=== PATIENT | male | born 1960 | race Caucasian/White ===

== ENCOUNTER 2020-02-14 03:09 | Emergency (ER) | payer OTHER ==
[~2020-02-14] VITALS: Ht 188 cm; Wt 90.0 kg
--- NOTE | 2020-02-14 03:56 | PHYS DOC ---
General Adult EDM: Chief Complaint: ALTERED MENTAL STATUS HPI: HPI: Patient is a 59 year old male brought in by EMS for evaluation of decreased level of consciousness. Prior to arrival found patient unresponsive sitting at the kitchen table. states patient look like he was . He states that he could not arouse the patient and he subsquently call 911. EMS states patient decreased level of consciousness- GCS of 5 but vital signs were stable and patient was maintaining his airway. During transport patient woke up and started talking. On arrival patient seems drowsy and slurring his words. Patient admits to drinking tonight but states not more than normal. Patient recalls the events of the evening up until passing out. He denies any history of chest pain or shortness of breath. Patient does recall a single episodes of dizzinesss this evening-- but he related it to possible intoxcation. Currently at bedside. Patient a/ox4. No focal weakness. Patient does have a pacemaker/defibulator and does not believe his device discharged. Review of Systems: Review of Systems: Constitutional: Denies fever or chills. [] Eyes: Denies change in visual acuity. [] HENT: Denies nasal congestion or sore throat. [] Respiratory: Denies cough or shortness of breath. [] Cardiovascular: Denies chest pain or edema. [] GI: Denies abdominal pain, nausea, vomiting, bloody stools or diarrhea. [] : Denies dysuria. [] Musculoskeletal: Denies back pain or joint pain. [] Integument: Denies rash. [] Neurologic: Denies headache, focal weakness or sensory changes. [] Endocrine: Denies polyuria or polydipsia. [] Lymphatic: Denies swollen glands. [] Psychiatric: Denies depression or anxiety. [] Heart Score: Risk Factors: Risk Factors: DM, Current or recent (<one month) smoker, HTN, HLP, family history of CAD, obesity. Risk Scores: Score 0 - 3: 2.5% MACE over next 6 weeks - Discharge Home Score 4 - 6: 20.3% MACE over next 6 weeks - Admit for Clinical Observation Score 7 - 10: 72.7% MACE over next 6 weeks - Early Invasive Strategies Physical Exam: PE: Constitutional: Well developed, well nourished, no acute distress, non-toxic a ppearance. [] HENT: Normocephalic, atraumatic, bilateral external ears normal, oropharynx moist, no oral exudates, nose normal. [] Eyes: PERRLA, EOMI, conjunctiva normal, no discharge. [] Neck: Normal range of motion, no tenderness, supple, no stridor. [] Cardiovascular:Heart rate regular rhythm, no murmur [] Lungs & Thorax: Bilateral breath sounds clear to auscultation [] Abdomen: Bowel sounds normal, soft, no tenderness, no masses, no pulsatile masses. [] Skin: Warm, dry, no erythema, no rash. [] Back: No tenderness, no CVA tenderness. [] Extremities: No tenderness, no cyanosis, no clubbing, ROM intact, no edema. [] Neurologic: Alert and oriented X 3, normal motor function, normal sensory function, no focal deficits noted. [] Psychologic: Affect normal, judgement normal, mood normal. [] EKG: EKG: EKG at 320 hours heart rate 80 artifact on EKG no ST elevation no ST depression no acute PR [] Radiology/Procedures: Radiology/Procedures: [] Course & Med Decision Making: Course & Med Decision Making Pertinent Labs and Imaging studies reviewed. (See chart for details) [] Patient was evaluated for chief complaint. Work-up consisted of laboratory analysis and radiologic imaging. Results reviewed and discussed with patient and significant other. Patient found to have an alcohol of greater than 200. Patient's magnesium was low and was replaced with 2 g. Patient's potassium patient was observed. Patient ambulated with a normal steady gait. Patient was discharged home in the care of significant other. Louis Disclaimer: Louis Disclaimer: This electronic medical record was generated, in whole or in part, using a voice recognition dictation system. Departure Departure Impression: Primary Impression: Altered mental status Additional Impressions: Alcohol intoxication Hypokalemia Hypomagnesemia Disposition: 01 DC HOME SELF CARE/HOMELESS Condition: STABLE Referrals: TERA CROCKETT (PCP) Patient Instructions: Alcohol Intoxication, Altered Mental Status, Hypokalemia, Hypomagnesemia JUSTINO RAWLS DO Feb 14, 2020 03:56
[2020-02-14 04:00] LABS: BARBITURATES NEG (NEG); BENZODIAZEPINES NEG (NEG); CANNABINOIDS NEG (NEG); COCAINE NEG (NEG); METHADONE NEG (NEG); OPIATES NEG (NEG); PHENCYCLIDINE NEG (NEG)
[2020-02-14 04:03] LABS: AMPHETAMINE/METHAMPHETAMINE NEG (NEG)
[2020-02-14 04:08] LABS: BASO % 0 % (0-3); EOS % 0 % (0-3); HEMATOCRIT 31.8 % (39.0-53.0); HEMOGLOBIN 11.4 g/dL (13.0-17.5); LYMPH # 1.2 x10^3/uL (1.0-4.8); LYMPH % 37 % (24-48); MEAN CORPUSCULAR HEMOGLOBIN 40 pg (25-35); MEAN CORPUSCULAR HGB CONC 36 g/dL (31-37); MEAN CORPUSCULAR VOLUME 112 fL (79-100); MONO # 0.2 x10^3/uL (0.0-1.1); MONO % 7 % (0-9); NEUT # 1.7 x10^3/uL (1.8-7.7); NEUT % 55 % (31-73); PLATELET COUNT 244 x10^3/uL (140-400); RED BLOOD COUNT 2.84 x10^6/uL (4.30-5.70); WHITE BLOOD COUNT 3.1 x10^3/uL (4.0-11.0)
[2020-02-14 04:20] LABS: ALBUMIN 3.5 g/dL (3.4-5.0); ALBUMIN/GLOBULIN RATIO 1.2 (1.0-1.7); CREATININE 1.1 mg/dL (0.7-1.3); GFR 68.8; TOTAL BILIRUBIN 0.6 mg/dL (0.2-1.0); TOTAL PROTEIN 6.4 g/dL (6.4-8.2)
[2020-02-14 04:23] LABS: POTASSIUM 2.3 mmol/L (3.5-5.1)
[2020-02-14] MEDS ORDERED: POTASSIUM CHLORIDE 20 MEQ TABLET.ER. PO ONE (04:45)
[2020-02-14] MEDS ORDERED: POTASSIUM CHLORIDE 10MEQ 100 ML IV ONE (05:00)
[2020-02-14] MEDS ORDERED: MAGNESIUM SULFATE 2GM 50 ML IV ONE (05:00)
[2020-02-14 05:02] LABS: PLT ESTIMATE ADEQUATE (ADEQUATE)
[2020-02-14] MEDS ORDERED: IV NORMAL SALINE 1000ML BAG 1,000 ML IV ONE (06:00)
[2020-02-15 03:10] VITALS: BP 126/79
--- NOTE | 2020-02-15 05:25 | EKG ---
[facility] [address] [place] [address] Test Date: 2020-02-14 Test Time: 03:20:04 Pat Name: NAEEM CROSS Department: Room: Gender: M Final Inspector Balance Wheel: : 1960 Requested By: JUSTINO RAWLS Order Number: [id number] Reading MD: Measurements Intervals [place] Rate: 80 P: MD: QRS: -19 QRSD: 132 T: 49 QT: 456 QTc: 530 Interpretive Statements IRREGULAR RHYTHM, NO P-WAVE FOUND VENTRICULAR PREMATURE COMPLEX(ES) LEFTWARD AXIS S1,S2,S3 PATTERN NON SPECIFIC INTRAVENTRICULAR BLOCK ABNORMAL ECG RI6.01 No previous ECG available for comparison
== END 2020-02-14 06:50 | disposition home or self-care (01) ==
LOC: ER 03:09
DX: F10.229 Alcohol dependence with intoxication, unspecified (principal); R41.82 Altered mental status, unspecified; E87.6 Hypokalemia; E83.42 Hypomagnesemia
CPT/HCPCS: 36415; 51702; 80053; 80307; 83735; 84484; 85025; 93005; 96365; 96366; 96368; 99285; G0480; J3475; J3480; J7030

== ENCOUNTER 2020-10-13 09:55 | Observation (INO) | payer BC, OTHER ==
[~2020-10-13] VITALS: Ht 193 cm; Wt 90.0 kg
[2020-10-13] MEDS ORDERED: PROMETHAZINE 25 MG SUPP.RECT. PR ONE (11:00)
[2020-10-13] MEDS ORDERED: IV NORMAL SALINE 1000ML BAG 1,000 ML IV SCH (11:00)
--- NOTE | 2020-10-13 11:02 | PHYS DOC ---
Past Medical History Past Medical History: Cancer, Other Additional Past Medical Histor: LEUKEMIA POOR HISTORIAN Past Surgical History: Other Additional Past Surgical Histo: AICD Smoking Status: Former Smoker Alcohol Use: Heavy General Adult EDM: Chief Complaint: NAUSEA/VOMITING/DIARRHEA HPI: HPI: Patient is a 60 year old male who presents with nausea and vomiting x5 days. He states he is also had some shortness of breath and intermittent chest pain. Patient states he was seen at [facility] on the [place] yesterday and they did not do a whole lot for him. He states they did send him home with some Zofran medication but it is not really helping. He states he is allergic to Compazine as it makes him very anxious. Patient is a poor historian. When I asked if he had any past medical history he says I have a heart condition and thinks it has something to do with tachycardia and he has a AICD placed. He denies taking any medications to me. Patient then stated later that he is on many medications and he has not been able to keep them down because of his vomiting. I also asked the patient if he had any other past medical history and he stated no. When looking in the computer he has had leukemia in the past. Patient denies any pain, abdominal pain, diarrhea, constipation, dizziness, headache, syncope, edema, back pain, neck pain, vision changes, numbness or tingling. Review of Systems: Review of Systems: Constitutional: Denies fever or chills. [] Eyes: Denies change in visual acuity. [] HENT: Denies nasal congestion or sore throat. [] Respiratory: Denies cough or + intermittent shortness of breath. [] Cardiovascular: + Intermittent chest pain or denies edema. [] GI: Denies abdominal pain, +nausea, +vomiting, denies bloody stools or diarrhea. [] : Denies dysuria. [] Musculoskeletal: Denies back pain or joint pain. [] Integument: Denies rash. [] Neurologic: Denies headache, focal weakness or sensory changes. [] Endocrine: Denies polyuria or polydipsia. [] Lymphatic: Denies swollen glands. [] Psychiatric: Denies depression or anxiety. [] Heart Score: C/O Chest Pain: Yes HEART Score for Chest Pain: HEART Score for Chest Pain Response (Comments) Value History Slighlty/Non-Suspicious 0 ECG Nonspecific Repolarizatio 1 Age >45 - < 65 1 Risk Factors 1 or 2 Risk Factors 1 Troponin < Normal Limit 0 Total 3 Risk Factors: Risk Factors: DM, Current or recent (<one month) smoker, HTN, HLP, family history of CAD, obesity. Risk Scores: Score 0 - 3: 2.5% MACE over next 6 weeks - Discharge Home Score 4 - 6: 20.3% MACE over next 6 weeks - Admit for Clinical Observation Score 7 - 10: 72.7% MACE over next 6 weeks - Early Invasive Strategies Allergies: Allergies: Allergies Coded Allergies Type Severity Reaction Last Updated Verified No Known Allergies Allergy Unknown 02/14/20 Yes Physical Exam: PE: Constitutional: Well developed, well nourished, no acute distress, non-toxic appearance. [] HENT: Normocephalic, atraumatic, bilateral external ears normal, oropharynx m oist, no oral exudates, nose normal. [] Eyes: PERRLA, EOMI, conjunctiva normal, no discharge. [] Neck: Normal range of motion, no tenderness, supple, no stridor. [] Cardiovascular:Heart rate regular rhythm, PVC, no murmur [] Lungs & Thorax: Bilateral breath sounds clear to auscultation [] Abdomen: Bowel sounds normal, soft, no tenderness, no masses, no pulsatile masses. [] Skin: Warm, dry, no erythema, no rash. [] Back: No tenderness, no CVA tenderness. [] Extremities: No tenderness, no cyanosis, no clubbing, ROM intact, no edema. [] Neurologic: Alert and oriented X 3, normal motor function, normal sensory function, no focal deficits noted. [] Psychologic: Affect normal, judgement normal, mood normal. Current Patient Data: Vital Signs: Vital Signs Date Time Temp Pulse Resp B/P (MAP) Pulse Ox O2 Delivery O2 Flow Rate FiO2 10/13/20 10:10 97.7 80 18 151/92 (111) 97 Room Air 97.7 EKG: EK and read by Dr. Breaux as sinus rhythm with multiple ventricular premature complexes but no STEMI. Radiology/Procedures: Radiology/Procedures: [] Impression: [facility] [address] [place] [address] IMAGING REPORT Signed PATIENT: NAEEM CROSS ACCOUNT: [id number] : 1960 LOCATION: ER AGE: 60 SEX: M EXAM STATUS: REG ER ORD. PHYSICIAN: CLINTON CARNEY APRN REASON: SOA, VOMITING PROCEDURE: PORTABLE CHEST 1V Site ID: [id number] EXAMINATION: XR CHEST 1V. HISTORY: 60 years Male Reason: SOA, VOMITING / Spl. Instructions: / History: . . COMPARISON: None. Findings: There is a pacemaker projecting over the upper left chest and 2 cardiac leads seen. The lungs are clear. The heart size is normal. There is no effusion or pneumothorax. The mediastinum and radha appear unremarkable. Impression: No acute process. Electronically signed by: Caleb Payton MD (10/13/2020 11:45 AM) [id number] DICTATED and SIGNED BY: CALEB PAYTON MD DATE: 10/13/20 [id number] [facility] [address] [place] [address] IMAGING REPORT Signed PATIENT: NAEEM CROSS ACCOUNT: [id number] : 1960 LOCATION: ER AGE: 60 SEX: M EXAM STATUS: REG ER ORD. PHYSICIAN: CLINTON CARNEY APRN REASON: NAUSEA, VOMITING PROCEDURE: CT ABD PELV W/ IV CONTRST ONLY Exam Date: 10/13/2020 12:[address] ABDOMEN+PELVIS W Indication: Reason: NAUSEA, VOMITING / Spl. Instructions: IV OMNI 300 75 MLS / History: . TECHNIQUE: CT examination of the abdomen and pelvis was performed following the administration of oral and nonionic intravenous contrast. One or more of the following dose reduction techniques were utilized: *Automated exposure control (AEC) *Adjustment of mA and/or kV according to patient size *Use of iterative reconstruction technique *CT scan done according to ALARA, or ALARA/IMAGE GENTLY FINDINGS: The visualized lung bases are clear. There is a small left renal cyst. There are bilateral nonobstructing renal calculi measuring up to 2 mm on the right and 5 mm on the left. There is a 4 mm calculus in the distal right ureter with only minimal prominence of the right ureter, but without significant hydronephrosis. No left hydronephrosis or hydroureter. The liver, gallbladder, spleen, pancreas, adrenal glands and kidneys are otherwise normal. Urinary bladder is normal in appearance. There is no bowel obstruction or inflammation. There is prominent submucosal fat in the right colon, a nonspecific finding, but can be seen with chronic inflammation. The appendix is normal. Mild atherosclerotic calcifications are seen. No lymphadenopathy or ascites is seen. Degenerative changes are seen in the spine. IMPRESSION: 4 mm calculus in the distal right ureter without significant hydronephrosis or hydroureter at this time. Bilateral nonobstructing renal calculi noted. No left hydronephrosis. Electronically signed by: Dianna Rader MD (10/13/2020 1:21 PM) [id number] DICTATED and SIGNED BY: DIANNA RADER MD DATE: 10/13/20 [id number] Course & Med Decision Making: Course & Med Decision Making Pertinent Labs and Imaging studies reviewed. (See chart for details) See HPI. Alert and oriented x4. Ambulatory with steady gait. Skin pink warm and dry. No extremity edema. He is slightly hypertensive at this time. Speaks in full clear sentences. Abdomen is soft and nontender. Lungs are clear all station all lobes. CT abdomen pelvis shows a right-sided ureter kidney stone. Patient has low magnesium and sodium. I have ordered 2 g of magnesium. He is gotten 2 L of normal saline. He is admitted to the hospitalist. Patient states he is not really wanting to stay but has not quite made up his mind. Dr. Sultana spoke to the patient and told in the importance of admission. [] Louis Disclaimer: Louis Disclaimer: This electronic medical record was generated, in whole or in part, using a voice recognition dictation system. Departure Departure Impression: Primary Impression: Hypomagnesemia Additional Impressions: Hyponatremia Dehydration Kidney stone Disposition: ADMITTED INPATIENT Admitting Physician: BARB Condition: STABLE Referrals: DARVIN KIDD MD (PCP) CLINTON CARNEY APRN Oct 13, 2020 11:02
--- NOTE | 2020-10-13 11:39 | EKG ---
[facility] [address] [place] [address] Test Date: 2020-10-13 Test Time: 11:02:49 Pat Name: NAEEM CROSS Department: Room: Gender: M Order Entry Technician: : 1960 Requested By: CLINTON CARNEY Order Number: [id number] Reading MD: Measurements Intervals [place] Rate: 72 P: -54 TX: 170 QRS: -24 QRSD: 110 T: 56 QT: 450 QTc: 495 Interpretive Statements SINUS RHYTHM VENTRICULAR PREMATURE COMPLEX(ES) LEFTWARD AXIS INCOMPLETE RIGHT BUNDLE BRANCH BLOCK QRS(T) CONTOUR ABNORMALITY CONSISTENT WITH ANTEROSEPTAL INFARCT PROBABLY OLD T ABNORMALITY IN HIGH LATERAL LEADS ABNORMAL ECG RI6.01 No previous ECG available for comparison
--- NOTE | 2020-10-13 11:48 | RAD ---
Site ID: [id number] EXAMINATION: XR CHEST 1V. HISTORY: 60 years Male Reason: SOA, VOMITING / Spl. Instructions: / History: . . COMPARISON: None. Findings: There is a pacemaker projecting over the upper left chest and 2 cardiac leads seen. The michel gs are clear. The heart size is normal. There is no effusion or pneumothorax. The mediastinum and radha appear unremarkable. Impression: No acute process. Electronically signed by: Edilberto Payton MD (10/13/2020 11:45 AM) [id number]
[2020-10-13] MEDS ORDERED: ASPIRIN CHEWABLE 81 MG TABLET. PO ONE (12:00)
[2020-10-13 12:18] LABS: BASO % 1 % (0-3); EOS % 0 % (0-3); HEMATOCRIT 37.6 % (39.0-53.0); HEMOGLOBIN 13.1 g/dL (13.0-17.5); LYMPH % 22 % (24-48); MEAN CORPUSCULAR HEMOGLOBIN 34 pg (25-35); MEAN CORPUSCULAR HGB CONC 35 g/dL (31-37); MEAN CORPUSCULAR VOLUME 98 fL (79-100); MONO # 0.3 x10^3/uL (0.0-1.1); MONO % 7 % (0-9); NEUT # 3.2 x10^3/uL (1.8-7.7); NEUT % 70 % (31-73); PLATELET COUNT 152 x10^3/uL (140-400); RED BLOOD COUNT 3.83 x10^6/uL (4.30-5.70); RED CELL DISTRIBUTION WIDTH 13.4 % (11.5-14.5); WHITE BLOOD COUNT 4.6 x10^3/uL (4.0-11.0)
[2020-10-13 12:19] LABS: CREATININE 0.7 mg/dL (0.7-1.3); GFR 115.4; POTASSIUM 3.5 mmol/L (3.5-5.1)
[2020-10-13 12:26] LABS: ALBUMIN 4.4 g/dL (3.4-5.0); ALBUMIN/GLOBULIN RATIO 1.3 (1.0-1.7); MAGNESIUM 1.6 mg/dL (1.8-2.4); TOTAL BILIRUBIN 1.7 mg/dL (0.2-1.0); TOTAL PROTEIN 7.8 g/dL (6.4-8.2)
[2020-10-13] MEDS ORDERED: CONTRAST GIVEN. MC PRN (12:30)
[2020-10-13] MEDS ORDERED: IOHEXOL 300 MG/ML 100ML VIAL. IV ONE (12:30)
[2020-10-13] MEDS ORDERED: MAGNESIUM SULFATE 2GM 50 ML IV ONE (12:45)
--- NOTE | 2020-10-13 13:23 | RAD ---
Exam Date: 10/13/2020 12:[address] ABDOMEN+PELVIS W Indication: Reason: NAUSEA, VOMITING / Spl. Instructions: IV OMNI 300 75 MLS / History: . TECHNIQUE: CT examination of the abdomen and pelvis was performed following the administration of or al and nonionic intravenous contrast. One or more of the following dose reduction techniques were ut ilized: *Automated exposure control (AEC) *Adjustment of mA and/or kV according to patient size *Use of iterative reconstruction technique *CT scan done according to ALARA, or ALARA/IMAGE GENTLY FINDINGS: The visualized lung bases are clear. There is a small left renal cyst. There are bilateral nonobstructing renal calculi measuring up to 2 mm on the right and 5 mm on the left. There is a 4 mm calculus in the distal right ureter with only m inimal prominence of the right ureter, but without significant hydronephrosis. No left hydronephrosis or hydroureter. The liver, gallbladder, spleen, pancreas, adrenal glands and kidneys are otherwise normal. Urinary bladder is normal in appearance. There is no bowel obstruction or inflammation. There is prominent submucosal fat in the right colon, a nonspecific finding, but can be seen with chronic inflammation. The appendix is normal. Mild atherosclerotic calcifications are seen. No lymphadenopathy or ascites is seen. Degenerative changes are seen in the spine. IMPRESSION: 4 mm calculus in the distal right ureter without significant hydronephrosis or hydroureter at this ti me. Bilateral nonobstructing renal calculi noted. No left hydronephrosis. Electronically signed by: Mike Rader MD (10/13/2020 1:21 PM) [id number]
[2020-10-13 13:46] LABS: BILIRUBIN,URINE NEGATIVE (NEG); CLARITY,URINE CLEAR; COLOR,URINE YELLOW; NITRITE,URINE NEGATIVE (NEG); PH,URINE 6.5 (<5.0-8.0); PROTEIN,URINE NEGATIVE (NEG-TRACE)
[2020-10-13 13:52] LABS: AMPHETAMINE/METHAMPHETAMINE NEG (NEG); BARBITURATES NEG (NEG); BENZODIAZEPINES NEG (NEG); CANNABINOIDS NEG (NEG); COCAINE NEG (NEG); METHADONE NEG (NEG); OPIATES NEG (NEG); PHENCYCLIDINE NEG (NEG)
[2020-10-13 13:54] LABS: BACTERIA,URINE 0 /HPF (0-FEW); RBC,URINE 0 /HPF (0-2); WBC,URINE OCC /HPF (0-4)
[2020-10-13] MEDS ORDERED: ONDANSETRON PF 4 MG/2 ML VIAL. IVP ONE (14:00)
[2020-10-13] MEDS: IV NORMAL SALINE 1000ML BAG 1,000 ML IV SCH (14:00)
--- NOTE | 2020-10-13 15:02 | HP ---
ADMIT DATE: 10/13/2020 CHIEF COMPLAINT: Nausea, vomiting, chest discomfort. HISTORY OF PRESENT ILLNESS: The patient is a pleasant 60-year-old male who presents with the above chief complaints. Basically, he has had 5 days of nausea, vomiting. He apparently was seen at [facility]. They sent him home with some Zofran, but that did not help. He IS ALLERGIC TO COMPAZINE. We tried some suppositories of Phenergan here in the ER, he is doing a little better with that. Also, he has a history of an AICD. I reviewed his EKG, is showing some arrhythmias. His magnesium level was low. Sodium level was low and incidentally. We had found that he has a kidney stone about 4 mm. I discussed the case with ER physician. We are going to admit the patient and consult cardiology and give him some IV fluids, and antiemetics. PAST MEDICAL HISTORY: AICD, leukemia, previous tobacco abuse. ALLERGIES: COMPAZINE. FAMILY HISTORY: Diabetes. SOCIAL HISTORY: He does not drink, smoke or take drugs. Used to smoke. MEDICATIONS: Reviewed. Please refer to the medication. REVIEW OF SYSTEMS: GENERAL: No history of weight change, weakness or fevers. SKIN: No bruising, hair changes or rashes. EYES: No blurred, double or loss of vision. NOSE AND THROAT: No history of nosebleeds, hoarseness or sore throat. HEART: No history of palpitations, chest pain or shortness of breath on exertion. LUNGS: Denies cough, hemoptysis, wheezing or shortness of breath. GASTROINTESTINAL: He complains of nausea, vomiting. GENITOURINARY: No history of frequency, urgency, hesitancy or nocturia. NEUROLOGIC: Denies history of numbness, tingling, tremor or weakness. PSYCHIATRIC: No history of panic, anxiety or depression. ENDOCRINE: No history of heat or cold intolerance, polyuria or polydipsia. EXTREMITIES: Denies muscle weakness, joint pain, pain on walking or stiffness. PHYSICAL EXAMINATION: VITALS: Within normal limits and are stable. GENERAL: No apparent distress. Alert and oriented. HEENT: Normal cephalic atraumatic, external auditory canals are patent EYES: Extraocular muscles are intact, pupils are equally round and reactive to light and accommodation MUSCULOSKELETAL: Well developed, well nourished, good range of motion ENDOCRINE: No Thyromegaly was palpated LYMPHATICS: No cervical chain or axillary nodes were noted HEMATOPOIETIC: No Bruising NECK: Supple, no JVD, no thyromegaly was noted. LUNGS: Clear to auscultation in all lung costello without rhonchi or wheezing. HEART: RRR, S1, S2 present. Peripheral pulses intact, no obvious murmurs were noted. ABDOMEN: Soft, nontender. Positive bowel sounds no organomegaly, normal bowel sounds. EXTREMITIES: Without any cyanosis, clubbing, or edema. Pedal pulses intact, Homans sign is negative. NEUROLOGIC: Normal speech, normal tone. A and O x3, moves all extremities, no obvious focal deficits. PSYCHIATRIC: Normal affect, normal mood. Stable. SKIN: No ulcerations or rashes, good skin turgor, no jaundice. VASCULAR: Good capillary refill, neurovascular bundle appears to be intact. LABORATORY DATA: White count is 4, hemoglobin 13, platelets 152. Electrolytes are sodium is 129, potassium 3.5, chloride 90, bicarbonate 21, BUN 8, creatinine 0.7, glucose is 79. Troponin is low at 0. BNP is high at 906. Drug screen positive for alcohol, positive for urine, ethyl alcohol. Urinalysis is negative. EKG shows intermittent sinus tachycardia with intermittent sinus tachycardia with some widened QRS. His chest x-ray shows no acute process. CT of the abdomen and pelvis shows a 4 mm distal ureteral stone and some bilateral nonobstructing renal calculi, no hydronephrosis. ASSESSMENT AND PLAN: Nausea, vomiting, kidney stone arrhythmias, hypomagnesemia, hyponatremia. The patient is being admitted to the cardiac floor. We will replace his magnesium and his sodium. Consult Cardiology, cardiac monitoring home meds. DVT prophylaxis. Full code. P.r.n. antiemetics. We are going to try Tigan 200 mg IM q.6h. p.r.n. Trend labs. PROGNOSIS: Guarded. CALIXTO/GUNNAR DR: CALIXTO/bryan TID: [id number]
[2020-10-13] MEDS ORDERED: PROMETHAZINE 25 MG SUPP.RECT. PR PRN (16:00)
[2020-10-13 19:00] VITALS: BP 146/81
[2020-10-13] MEDS ORDERED: ONDANSETRON PF 4 MG/2 ML VIAL. IVP PRN (20:00)
[2020-10-13] MEDS ORDERED: LEVO112T49 PO (20:20)
[2020-10-13] MEDS ORDERED: ZOLP5TAB5 PO (20:20)
[2020-10-13] MEDS ORDERED: SOTA80TA48 PO (20:20)
[2020-10-13] MEDS ORDERED: AMIO200T6 PO (20:20)
[2020-10-13] MEDS ORDERED: CARV25TA2 PO (20:20)
[2020-10-13] MEDS ORDERED: APIX2.5T PO (20:20)
[2020-10-13] MEDS ORDERED: ROPI0.254 PO (20:20)
[2020-10-13] MEDS ORDERED: CARV6.2511 PO (20:20)
[2020-10-13] MEDS ORDERED: CLONAZEPAM1 MG PO (20:20)
[2020-10-13] MEDS ORDERED: ONDA-84 PO (20:20)
[2020-10-13] MEDS ORDERED: FAMO20TA5 PO (20:20)
[2020-10-13] MEDS ORDERED: PROCHLORPERAZINE 10 MG/2 ML VIAL. IV PRN (21:15)
[2020-10-13 23:00] VITALS: BP 132/72
[2020-10-14] MEDS ORDERED: ZOLPIDEM 5 MG TABLET. PO PRN (00:30)
[2020-10-14] MEDS ORDERED: FAMOTIDINE 20 MG TABLET. PO SCH ×2 (00:45→09:00)
[2020-10-14] MEDS ORDERED: rOPINIRole 0.25 MG TABLET. PO SCH ×2 (00:45→21:00)
[2020-10-14] MEDS ORDERED: clonazePAM 0.5 MG TABLET PO PRN (01:00)
[2020-10-14] MEDS ORDERED: ONDANSETRON ODT 4 MG TAB.RAPDIS. PO PRN (01:00)
[2020-10-14] MEDS: AMIODARONE HCL 200 MG TABLET. PO SCH ×2 (01:12→08:58)
[2020-10-14] MEDS: CARVEDILOL 6.25 MG TABLET. PO SCH ×2 (01:13→08:58)
[2020-10-14] MEDS: SOTALOL 80 MG TABLET. PO SCH ×2 (01:14→09:00)
[2020-10-14] MEDS: APIXABAN 2.5 MG TABLET. PO SCH ×2 (01:14→08:58)
[2020-10-14 03:00] VITALS: BP 138/70
[2020-10-14] MEDS: IV NORMAL SALINE 1000ML BAG 1,000 ML IV SCH (03:20)
[2020-10-14] MEDS ORDERED: LEVOTHYROXINE 112 MCG TABLET PO SCH (06:00)
[2020-10-14 07:00] VITALS: BP 167/93
[2020-10-14] MEDS ORDERED: CARVEDILOL 6.25 MG TABLET. PO SCH (08:00)
[2020-10-14] MEDS ORDERED: SOTALOL 80 MG TABLET. PO SCH (09:00)
[2020-10-14] MEDS ORDERED: AMIODARONE HCL 200 MG TABLET. PO SCH (09:00)
[2020-10-14] MEDS ORDERED: APIXABAN 2.5 MG TABLET. PO SCH (09:00)
[2020-10-14 09:46] LABS: CALCIUM 9.1 mg/dL (8.5-10.1); CREATININE 0.9 mg/dL (0.7-1.3); GFR 86.4; MAGNESIUM 2.1 mg/dL (1.8-2.4); POTASSIUM 4.1 mmol/L (3.5-5.1)
[2020-10-14 11:00] VITALS: BP 154/81
--- NOTE | 2020-10-14 11:13 | NUR ---
SW following. Discussed with RN, pt from home, room air. Cardiology consulted. Pt wanting to go home as soon as possible. RN advised no SW needs. SW will continue to follow.
[2020-10-14] MEDS ORDERED: IV NORMAL SALINE 500ML BAG 500 ML IV ONE (11:30)
--- NOTE | 2020-10-14 11:49 | DISCH ---
DISCHARGE INSTRUCTIONS Condition on Discharge Condition on Discharge: Stable Activity After Discharge Activity Instructions for Disc: Activity as tolerated Lifting Instructions after Dis: Do not lift >10 pounds Exercise Instruction after Dis: Walk 15 min, 3 x per day Driving Instructions after Dis: Do not drive today Diet after Discharge Diet after Discharge: Cardiac Contacting the DRBassem after DC Call your doctor for: If your condition worsens Follow-Up Follow up with: PCP within 2 weeks of discharge Follow Up With: Cardiology as scheduled NAEEM SMALLS MD Oct 14, 2020 11:49
--- NOTE | 2020-10-14 13:06 | NUR ---
Discharge Note: JONO CROSS [facility] Discharge instructions and discharge home medications reviewed with the patient and a copy given. All questions have been answered and understanding verbalized. The following instructions and handouts were given: Home meds as instructed Follow up with PCP in weeks Follow up with cardiology as scheduled Patient teaching about hypomagnesemia, hyponatremia, kidney stones and dehydration; handouts given. Discontinued lines and drains: peripheral IV intact, patient tolerated removal, no complications noted Patient discharged to home with self-care on room air via wheelchair at 1240.
--- NOTE | 2020-10-16 17:47 | PDOC3 ---
[facility]-Discharge Summary Date of Admission: Date of Admission: Oct 13, 2020 Date of Discharge: Date of Discharge: Oct 14, 2020 Discharge Diagnosis: Discharge Diagnosis: Nausea, vomiting, kidney stone arrhythmias, hypomagnesemia, hyponatremia. Hospital Course: Hospital Course: 60-year-old male who presents with the above chief complaints. Basically, he has had 5 days of nausea, vomiting. He apparently was seen at [facility]. They sent him home with some Zofran, but that did not help. He IS ALLERGIC TO COMPAZINE. We tried some suppositories of Phenergan here in the ER, he is doing a little better with that. Also, he has a history of an AICD. I reviewed his EKG, is showing some arrhythmias. His magnesium level was low. Sodium level was low and incidentally. We had found that he has a kidney stone about 4 mm. I discussed the case with ER physician. We are going to admit the patient and consult cardiology and give him some IV fluids, and antiemetics. By day of discharge, pt was clinically stable and ready for discharge. Rest of hospital course was uneventful Disposition: Disposition/Orders: D/C to Home Activity: Activity: Resume previous activity Diet: Diet: Cardiac Medications: Home Meds Reported Medications Sotalol Hcl (SOTALOL) 80 Mg Tablet, 80 MG PO BID for tachycardia, TAB 10/13/20 Amiodarone Hcl (AMIODARONE HCL) 200 Mg Tablet, 1 TAB PO BID for cardiac, #90 TAB 1 Refill 10/13/20 Carvedilol (CARVEDILOL ) 6.25 Mg Tablet, 6.25 MG PO BIDWMEALS for CARDIAC, TAB 10/13/20 Apixaban (ELIQUIS) 2.5 Mg Tablet, 2.5 MG PO BID for blood thinner, TAB 10/13/20 Levothyroxine Sodium (LEVOTHYROXINE SODIUM) 112 Mcg Tablet, 1 TAB PO DAILY for hypothroid, #30 TAB 5 Refills 10/13/20 Ondansetron Hcl (ONDANSETRON HCL) 4 Mg Tablet, 1 TAB PO PRN Q4HRS for nausea, #20 TAB 2 Refills 10/13/20 Ropinirole Hcl (ROPINIROLE HCL) 0.25 Mg Tablet, 0.25 MG PO HS for restless leg, TAB 10/13/20 Clonazepam (CLONAZEPAM) 1 Mg Tablet, 0.5 MG PO TID PRN for ANXIETY / AGITATION, TAB 10/13/20 Famotidine (FAMOTIDINE) 20 Mg Tablet, 20 MG PO BID for gerd, TAB 10/13/20 Zolpidem Tartrate (ZOLPIDEM TARTRATE) 5 Mg Tablet, 5 MG PO PRN QHS PRN for INSOMNIA, TAB 0 Refills 10/13/20 Scheduled Amiodarone Hcl (Amiodarone Hcl), 1 TAB PO BID, (Reported) Apixaban (Eliquis), 2.5 MG PO BID, (Reported) Carvedilol (Carvedilol ), 6.25 MG PO BIDWMEALS, (Reported) Famotidine (Famotidine), 20 MG PO BID, (Reported) Levothyroxine Sodium (Levothyroxine Sodium), 1 TAB PO DAILY, (Reported) Ondansetron Hcl (Ondansetron Hcl), 1 TAB PO PRN Q4HRS, (Reported) Ropinirole Hcl (Ropinirole Hcl), 0.25 MG PO HS, (Reported) Sotalol Hcl (Sotalol), 80 MG PO BID, (Reported) Scheduled PRN Clonazepam (Clonazepam), 0.5 MG PO TID PRN for ANXIETY / AGITATION, (Reported) Zolpidem Tartrate (Zolpidem Tartrate), 5 MG PO PRN QHS PRN for INSOMNIA, (Reported) Total Time: Total Time: Total time spent was 35 minutes in preparing scripts, discharge planning with SW and RN, and preparing this discharge summary. Patient seen and examined on day of discharge. Justicifation of Admission Dx: Justifications for Admission: Justification of Admission Dx: Yes Sepsis: Failure of Out Pt Tx NAEEM SMALLS MD Oct 16, 2020 17:47
--- NOTE | 2020-10-21 14:34 | NUR ---
MgSo4 started at 13:25 on 10/13/20--stop time 15:25 on 10/13/20 NaCl started at 11:00 on 10/13/20--stop time 12:00 on 10/13/20 NaCl started at 11:40 on 10/14--stop time 12:40 on 10/14
[2020-10-29] MEDS ORDERED: CYAN1TAB19 PO (09:59)
[2020-10-29] MEDS ORDERED: THIA100T57 PO (10:00)
== END 2020-10-14 12:40 | disposition home or self-care (01) ==
LOC: ER 09:55 → 6 SOUTH 13:22
PROVIDERS: ADMIT Internal Medicine; ATTEND Internal Medicine
DX: E83.42 Hypomagnesemia (principal); E87.1 Hypo-osmolality and hyponatremia; E86.0 Dehydration; N20.0 Calculus of kidney; C95.90 Leukemia, unspecified not having achieved remission; I49.9 Cardiac arrhythmia, unspecified; Z87.891 Personal history of nicotine dependence; Z95.810 Presence of automatic (implantable) cardiac defibrillator; Z79.899 Other long term (current) drug therapy
CPT/HCPCS: 36415; 71045; 74177; 80048; 80053; 80307; 81001; 83690; 83735; 83880; 84484; 85025; 93005; 96361; 96365; 96366; 96375; 96376; 99285; G0378; J2405; J3475; J7030; J7040; Q9967; G0379